=== PATIENT | female | born 1995 | race African-American/Black ===

== ENCOUNTER → 2016-04-05 | Outpatient (CLI) | payer OTHER ==
[2016-04-05 17:53] LABS: BASO % 0.4 % (0.0-1.0); EOS # 0.1 K/mm3 (0.0-0.50); EOS % 0.9 % (0.0-3.0); LARGE UNSTAINED CELL # 0.1 K/mm3 (0.0-0.4); LARGE UNSTAINED CELL % 1.9 % (0.0-4.0); LYMPH # 1.9 K/mm3 (1.5-6.5); LYMPH % 27.7 % (24.0-44.0); MEAN CORPUSCULAR HEMOGLOBIN 30.3 pg (27.0-33.0); MEAN CORPUSCULAR HGB CONC 33.5 g/dl (32.0-36.5); MEAN CORPUSCULAR VOLUME 90.5 fl (80.0-96.0); MONO # 0.3 K/mm3 (0.0-0.8); MONO % 4.9 % (0.0-5.0); NEUTROPHILS # 4.4 K/mm3 (1.8-7.7); NEUTROPHILS % 64.2 % (36.0-66.0); PLATELET COUNT, AUTOMATED 375 k/mm3 (150-450); RED CELL DISTRIBUTION WIDTH 11.3 % (11.5-14.5); WHITE BLOOD COUNT 6.9 K/mm3 (4.0-10.0)
[2016-04-08 11:13] LABS: HBsAg Prenatal NEGATIVE (NEGATIVE)
[2016-04-08 12:51] LABS: CONTROL LINE INT CTR LINE PRESENT; HIV SCRN NEGATIVE (NEGATIVE); HIV SCRN1 NEGATIVE (NEGATIVE)
== END ==
LOC: M LRY 11:59
PROVIDERS: ATTEND Obstetrics & Gynecology
DX: Z34.81 Encounter for supervision of other normal pregnancy, first trimester (principal)

== ENCOUNTER 2016-04-07 10:06 | Emergency (ER) | payer OTHER ==
--- NOTE | 2016-04-07 12:29 | EDDOCDS ---
Physician Documentation [facility] Name: Shelby Dodge Age: 20 yrs Sex: Female : 1995 Arrival Date: 04/07/2016 Time: 10:06 Bed I2 / M2 Private MD: Other - Complete Info On Cds Disposition: 04/07/16 12:21 Discharged to Home/Self Care. Impression: Nausea and vomiting, state - FIRST TRIMESTER, Other chest pain - likely due to acid reflux vs muscle strain, low risk for ACS/PE. - Condition is Stable. - Discharge Instructions: First Trimester of , Abdominal Pain During , Nonspecific Chest Pain. - Prescriptions for Diclegis 10- 10 mg Oral - take 2 tablets by ORAL route Every night As needed; 30 tablet. - Medication Reconciliation, Local Pharmacy Hours form. - Follow up: Shimon Stein; When: As previously arranged; Reason: Continuance of care, To establish care. Follow up: Emergency Department; When: As needed; Reason: Trouble breathing, Worsening of conditions, SEVERE PAIN, CHEST PAIN, VAGINAL BLEEDING, UNCONTROLLED VOMITING. - Problem is new. - Symptoms have improved. - Notes: may use over the counter TUMS for indigestion Historical: - Allergies: Morphinechest pain; Tylenol-Codeine #3vomiting; - Home Meds: 1. Vitamin Oral 1 tab once daily in theodora (Last dose: 04/06/2016) - PMHx: none; - PSHx: none; - Social history: Smoking status: Patient states was never smoker of tobacco. No barriers to communication noted, The patient speaks fluent Libyan, Speaks appropriately for age. - Family history: Not pertinent. - : The pt / caregiver states he / she is not on anticoagulants. Home medication list is obtained from the patient. - Exposure Risk Screening:: None identified. 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 1 in. (154.94 cm) (R); Pain 6/10; 12:24 BP 114 / 66; Pulse 66; Resp 18; Temp 98.4; Pulse Ox 98% ; Pain 0/10; dls 10:10 Body Mass Index 23.62 (56.70 kg, 154.94 cm) mt4 MDM: 10:25 ECG WITH READING ER PHYS+CARDIAG ordered. EDMS 10:49 Financial registration complete. mpb 10:52 [facility] Agreement was scanned into [employer] and attached to record. mpb 11:03 UCG by Nursing ordered. ar2 Point of Care Testing: Urine : 11:21 hCG Reading: Positive; jam1 Ranges: Signatures: Dispatcher [employer] EDMS Saumya Farr, RN RN dls Radha BowserRN RN jo3 Luigi Aguilar, PA-Samuel PA-Samuel ar2 Jose Cui, Jacobo Reg mpb The chart was reviewed and I authenticate all verbal orders and agree with the evaluation and treatment provided.Attachments: 10:52 [facility] mpb MTDD
--- NOTE | 2016-04-07 12:29 | EDDOCDS ---
Nurse's Notes [facility] Name: Shelby Dodge Age: 20 yrs Sex: Female : 1995 Arrival Date: 04/07/2016 Time: 10:06 Bed I2 / M2 Private MD: Other - Complete Info On Cds Diagnosis: Nausea and vomiting; state-FIRST TRIMESTER;Other chest pain-likely due to acid reflux vs muscle strain, low risk for ACS/PE Presentation: 04/07 10:16 Presenting complaint: Patient states: Upper abdominal pain bilaterally intermittently. jo3 Pains started . Also having intermittent left anterior chest pain when she has abdominal pain. Pt is approximately 7-8 weeks . Aspirin was not taken prior to arrival. Adult Sepsis Screening: The patient does not have new or worsening altered mentation. Patient's respiratory rate is less than 22. Systolic blood pressure is greater than 100. Patient has a qSOFA score of 0- Negative Sepsis Screen. Suicide/Homicide risk assessment- the patient denies having any suicidal and/or homicidal ideations and does not present with any other emotional, behavioral or mental health complaints. Status: The patient is a dependent. Transition of care: patient was not received from another setting of care. 10:16 Acuity: YASH Level 3 jo3 10:16 Method Of Arrival: Walkin/Carried/Asstd jo3 Triage Assessment: 10:19 General: Appears in no apparent distress, Behavior is appropriate for age, cooperative. jo3 Pain: Denies pain. HIV screening NA for this visit Offered previously. The patient is triaged at the bedside. See Assessment in Nurses Notes section of ED record. Neurological: Level of Consciousness is awake, alert, Oriented to person, place, time. Cardiovascular: Chest pain is denied. Respiratory: Airway is patent Respiratory effort is even, unlabored. Derm: Skin is pink, warm & dry. 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 Vitamin Oral 1 tab once daily in theodora (Last dose: 04/06/2016) - PMHx: none; - PSHx: none; - Social history: Smoking status: Patient states was never smoker of tobacco. No barriers to communication noted, The patient speaks fluent Slovenian, Speaks appropriately for age. - Family history: Not pertinent. - : The pt / caregiver states he / she is not on anticoagulants. Home medication list is obtained from the patient. - Exposure Risk Screening:: None identified. Screenin:44 Screening information is obtained from the patient. Primary language is Slovenian. Fall jam1 risk: No risks identified. Assistance ADL's: requires no assistance with activities of daily living. Abuse/DV Screen: The patient / caregiver reports he/she is: not in a situation that causes fear, pain or injury. Nutritional screening: No deficits noted. Exposure Risk Screening: None identified. Advance Directives: Currently, there is no health care proxy. There is no active DNR order. There is no living will. There is no Power of Assistant Front Office Manager. Advance directive information has not previously been placed in an [facility] medical record. Further advance directive information is declined. home support is adequate. Assessment: 10:37 Reassessment: patient brought to room and EKG done and reviewed. Patient was asked to kr3 go to lobby to wait for room placement and at this time patient is no longer in ED. 11:25 General: Appears in no apparent distress, comfortable, Behavior is cooperative. Pain: jf3 Location: right upper quadrant and left upper quadrant Pain currently is 0 out of 10 on a pain scale. At worst was 6 out of 10 on a pain scale. Quality of pain is described as sharp, stabbing. Neurological: Level of Consciousness is awake, alert, Oriented to person, place, time. Cardiovascular: Capillary refill < 3 seconds Chest pain is denied. Respiratory: Airway is patent Respiratory effort is even, unlabored, Respiratory pattern is regular, symmetrical, Breath sounds are clear bilaterally. Denies shortness of breath. GI: Abdomen is flat, non- distended Bowel sounds present X 4 quads. Abd is soft and non tender X 4 quads. Reports nausea, Denies diarrhea. Derm: Skin is normal. 12:27 Cardiovascular: Rhythm is sinus rhythm No ectopy. dls Vital Signs: 10:10 BP 112 / 67 LA Sitting (auto/reg); Pulse 72 LA; Resp 18 S; Temp 97.4(O); Pulse Ox 97% mt4 on R/A; Weight 56.7 kg (R); Height 5 ft. 1 in. (154.94 cm) (R); Pain 6/10; 12:24 BP 114 / 66; Pulse 66; Resp 18; Temp 98.4; Pulse Ox 98% ; Pain 0/10; dls 10:10 Body Mass Index 23.62 (56.70 kg, 154.94 cm) mt4 Vitals: 10:10 Log In Time: April 07, 2016 at 10:06. mt4 ED Course: 10:09 Patient visited by Yesenia Coombs. mt4 10:09 Patient moved to Waiting mt4 10:10 Other - Complete Info On Cds is Private Physician. mt4 10:11 Patient moved to Pre RCE mt4 10:18 Triage Initiated jo3 10:21 Patient visited by Radha Bowser RN. jo3 10:24 Patient moved to PR2 / 26 jo3 10:31 Luigi Aguilar PA-C is PHCP. ar2 10:31 Christian Duenas MD is Attending Physician. ar2 10:34 Patient visited by Luigi Aguilar PA-C. ar2 10:37 Patient moved to Pre RCE kr3 10:40 Patient moved to Triage 1 kr3 10:40 Patient moved to I2 / M2 kr3 10:44 Pt greeted and oriented to ED. Patient advised of names of staff involved in care, jam1 location of call robertson, wait times and NPO status. Patient has correct armband on for positive identification. Placed in gown. Bed in low position. Call light in reach. Side rails up X 1. Door closed. 10:52 [facility] Payment Agreement was scanned into [employer] and attached to record. mpb 11:25 The patient / caregiver is instructed regarding the plan of care and ED course. Cardiac jf3 monitoring not applicable on this patient. 11:35 Patient visited by Larry Maria,AGUILAR. jf3 12:19 Shimon Stein is Referral Physician. ar2 12:28 No IV's were initiated during this patient's visit. No procedures done that require dls assistance. Point of Care Testing: Urine : 11:21 hCG Reading: Positive; jam1 Ranges: Order Results: There are currently no results for this order. Outcome: 12:21 Discharge ordered by Provider. ar2 12:27 Discharge Assessment: Patient awake, alert and oriented x 3. No cognitive and/or dls functional deficits noted. Patient verbalized understanding of disposition instructions. patient administered narcotics - no. The following High Risk Discharge criteria are identified: None. Discharged to home ambulatory, with significant other. Condition: stable. Discharge instructions given to patient, Instructed on discharge instructions, follow up and referral plans. medication usage, Demonstrated understanding of instructions, medications, Pt was receptive of discharge instructions/ teaching. Prescriptions given X 1. Ultrasound Study completed. Property sent home with patient. 12:29 Patient left the ED. dls Signatures: Saumya Farr RN RN dls Molly Serna, COPING MACHINE ASSEMBLER COPING MACHINE ASSEMBLER jam1 Taylor Cox,RN RN kr3 Radha BowserRN RN jo3 Luigi Aguilar, PA-C PA-C ar2 Yesenia Coombs mt4 Larry MariaRN RN jf3 Jose Cui, Reg Reg mpb Corrections: (The following items were deleted from the chart) 10:21 10:16 Presenting complaint: Patient states: Upper abdominal pain bilaterally jo3 intermittently. Pains started . Also having intermittent left anterior chest pain when she has abdominal pain jo3 10:21 10:16 Aspirin was not taken prior to arrival. jo3 jo3 MTDD
--- NOTE | 2016-04-07 13:15 | ECGEPIP ---
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
--- NOTE | 2016-04-09 13:30 | EDDOCDS ---
Physician Documentation [facility] Name: Shelby Dodge Age: 20 yrs Sex: Female : 1995 Arrival Date: 04/07/2016 Time: 10:06 Bed I2 / M2 Private MD: Other - Complete Info On Cds Disposition: 04/07/16 12:21 Discharged to Home/Self Care. Impression: Nausea and vomiting, state - FIRST TRIMESTER, Other chest pain - likely due to acid reflux vs muscle strain, low risk for ACS/PE. - Condition is Stable. - Discharge Instructions: First Trimester of , Abdominal Pain During , Nonspecific Chest Pain. - Prescriptions for Diclegis 10- 10 mg Oral - take 2 tablets by ORAL route Every night As needed; 30 tablet. - Medication Reconciliation, Local Pharmacy Hours form. - Follow up: Shimon Stein; When: As previously arranged; Reason: Continuance of care, To establish care. Follow up: Emergency Department; When: As needed; Reason: Trouble breathing, Worsening of conditions, SEVERE PAIN, CHEST PAIN, VAGINAL BLEEDING, UNCONTROLLED VOMITING. - Problem is new. - Symptoms have improved. - Notes: may use over the counter TUMS for indigestion Historical: - Allergies: Morphinechest pain; Tylenol-Codeine #3vomiting; - Home Meds: 1. Vitamin Oral 1 tab once daily in theodora (Last dose: 04/06/2016) - PMHx: none; - PSHx: none; - Social history: Smoking status: Patient states was never smoker of tobacco. No barriers to communication noted, The patient speaks fluent [place]ry[place], Speaks appropriately for age. - Family history: Not pertinent. - : The pt / caregiver states he / she is not on anticoagulants. Home medication list is obtained from the patient. - Exposure Risk Screening:: None identified. 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 1 in. (154.94 cm) (R); Pain 6/10; 12:24 BP 114 / 66; Pulse 66; Resp 18; Temp 98.4; Pulse Ox 98% ; Pain 0/10; dls 10:10 Body Mass Index 23.62 (56.70 kg, 154.94 cm) mt4 MDM: 10:25 ECG WITH READING ER PHYS+CARDIAG ordered. EDMS 10:49 Financial registration complete. mpb 10:52 [facility] Payment Agreement was scanned into [employer] and attached to record. mpb 11:03 UCG by Nursing ordered. ar2 17:24 ECG/EKG was scanned into [employer] and attached to record. kf3 20:06 T-Sheet-- Draft Copy was scanned into [employer] and attached to record. klr Point of Care Testing: Urine : 11:21 hCG Reading: Positive; jam1 Ranges: Signatures: Dispatcher [employer] EDMS Saumya Farr RN RN dls Radha Bowser RN RN jo3 Telly Pinon, Reg Reg kf3 Luigi Aguilar, SHELLY PAKatharina ar2 Jose Cui, Reg Reg mpb Kallie Baires klr The chart was reviewed and I authenticate all verbal orders and agree with the evaluation and treatment provided.Attachments: 10:52 [facility] Payment Agreement mpb 17:24 ECG/EKG kf3 20:06 T-Sheet-- Draft Copy klr Chart Complete MTDD
--- NOTE | 2016-04-09 13:30 | EDDOCDS ---
Nurse's Notes [facility] Name: Monica Bolivar Age: 20 yrs Sex: Female : 1995 Arrival Date: 04/07/2016 Time: 10:06 Bed I2 / M2 Private MD: Other - Complete Info On Cds Diagnosis: Nausea and vomiting; state-FIRST TRIMESTER;Other chest pain-likely due to acid reflux vs muscle strain, low risk for ACS/PE Presentation: 04/07 10:16 Presenting complaint: Patient states: Upper abdominal pain bilaterally intermittently. jo3 Pains started . Also having intermittent left anterior chest pain when she has abdominal pain. Pt is approximately 7-8 weeks . Aspirin was not taken prior to arrival. Adult Sepsis Screening: The patient does not have new or worsening altered mentation. Patient's respiratory rate is less than 22. Systolic blood pressure is greater than 100. Patient has a qSOFA score of 0- Negative Sepsis Screen. Suicide/Homicide risk assessment- the patient denies having any suicidal and/or homicidal ideations and does not present with any other emotional, behavioral or mental health complaints. Status: The patient is a dependent. Transition of care: patient was not received from another setting of care. 10:16 Acuity: YASH Level 3 jo3 10:16 Method Of Arrival: Walkin/Carried/Asstd jo3 Triage Assessment: 10:19 General: Appears in no apparent distress, Behavior is appropriate for age, cooperative. jo3 Pain: Denies pain. HIV screening NA for this visit Offered previously. The patient is triaged at the bedside. See Assessment in Nurses Notes section of ED record. Neurological: Level of Consciousness is awake, alert, Oriented to person, place, time. Cardiovascular: Chest pain is denied. Respiratory: Airway is patent Respiratory effort is even, unlabored. Derm: Skin is pink, warm & dry. 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 Vitamin Oral 1 tab once daily in theodora (Last dose: 04/06/2016) - PMHx: none; - PSHx: none; - Social history: Smoking status: Patient states was never smoker of tobacco. No barriers to communication noted, The patient speaks fluent Arabic, Speaks appropriately for age. - Family history: Not pertinent. - : The pt / caregiver states he / she is not on anticoagulants. Home medication list is obtained from the patient. - Exposure Risk Screening:: None identified. Screenin:44 Screening information is obtained from the patient. Primary language is Arabic. Fall jam1 risk: No risks identified. Assistance ADL's: requires no assistance with activities of daily living. Abuse/DV Screen: The patient / caregiver reports he/she is: not in a situation that causes fear, pain or injury. Nutritional screening: No deficits noted. Exposure Risk Screening: None identified. Advance Directives: Currently, there is no health care proxy. There is no active DNR order. There is no living will. There is no Power of Planer Tailer. Advance directive information has not previously been placed in an [facility] medical record. Further advance directive information is declined. home support is adequate. Assessment: 10:37 Reassessment: patient brought to room and EKG done and reviewed. Patient was asked to kr3 go to lobby to wait for room placement and at this time patient is no longer in ED. 11:25 General: Appears in no apparent distress, comfortable, Behavior is cooperative. Pain: jf3 Location: right upper quadrant and left upper quadrant Pain currently is 0 out of 10 on a pain scale. At worst was 6 out of 10 on a pain scale. Quality of pain is described as sharp, stabbing. Neurological: Level of Consciousness is awake, alert, Oriented to person, place, time. Cardiovascular: Capillary refill < 3 seconds Chest pain is denied. Respiratory: Airway is patent Respiratory effort is even, unlabored, Respiratory pattern is regular, symmetrical, Breath sounds are clear bilaterally. Denies shortness of breath. GI: Abdomen is flat, non- distended Bowel sounds present X 4 quads. Abd is soft and non tender X 4 quads. Reports nausea, Denies diarrhea. Derm: Skin is normal. 12:27 Cardiovascular: Rhythm is sinus rhythm No ectopy. dls Vital Signs: 10:10 BP 112 / 67 LA Sitting (auto/reg); Pulse 72 LA; Resp 18 S; Temp 97.4(O); Pulse Ox 97% mt4 on R/A; Weight 56.7 kg (R); Height 5 ft. 1 in. (154.94 cm) (R); Pain 6/10; 12:24 BP 114 / 66; Pulse 66; Resp 18; Temp 98.4; Pulse Ox 98% ; Pain 0/10; dls 10:10 Body Mass Index 23.62 (56.70 kg, 154.94 cm) mt4 Vitals: 10:10 Log In Time: April 07, 2016 at 10:06. mt4 ED Course: 10:09 Patient visited by Yesenia Coombs. mt4 10:09 Patient moved to Waiting mt4 10:10 Other - Complete Info On Cds is Private Physician. mt4 10:11 Patient moved to Pre RCE mt4 10:18 Triage Initiated jo3 10:21 Patient visited by Radha Bowser RN. jo3 10:24 Patient moved to PR2 / 26 jo3 10:31 Luigi Aguilar PA-C is PHCP. ar2 10:31 Christian Duenas MD is Attending Physician. ar2 10:34 Patient visited by Luigi Aguilar PA-C. ar2 10:37 Patient moved to Pre RCE kr3 10:40 Patient moved to Triage 1 kr3 10:40 Patient moved to I2 / M2 kr3 10:44 Pt greeted and oriented to ED. Patient advised of names of staff involved in care, jam1 location of call robertson, wait times and NPO status. Patient has correct armband on for positive identification. Placed in gown. Bed in low position. Call light in reach. Side rails up X 1. Door closed. 10:52 [facility] Payment Agreement was scanned into [employer] and attached to record. mpb 11:25 The patient / caregiver is instructed regarding the plan of care and ED course. Cardiac jf3 monitoring not applicable on this patient. 11:35 Patient visited by Larry Maria,AGUILAR. jf3 12:19 Shimon Stein is Referral Physician. ar2 12:28 No IV's were initiated during this patient's visit. No procedures done that require dls assistance. 13:43 EKG-ADULT Returned. EDMS 17:24 ECG/EKG was scanned into [employer] and attached to record. kf3 20:06 T-Sheet-- Draft Copy was scanned into [employer] and attached to record. klr Point of Care Testing: Urine : 11:21 hCG Reading: Positive; jam1 Ranges: Order Results: Radiology Order: EKG-ADULT Test: EKG-ADULT REASON FOR EXAMINATION: Chest Pain; Stationary ECG Study; [facility] - ED; ; Test Date: 2016-04-07; Pat Name: MONICA BOLIVAR Department:; Room: -; Gender: F Database Operator: kami; : 1995 Requested By: Nuria Carl PA-C; Order Number: [id number] Reading MD: Hilary Perdue; Measurements; Intervals [place]; Rate: 69 P: 51; AL: 139 QRS: 13; QRSD: 87 T: -1; QT: 377; QTc: 406; Interpretive Statements; SINUS RHYTHM WITH SINUS ARRHYTHMIA; SEPTAL MYOCARDIAL INFARCTION, PROBABLY OLD; NSTTW ABNORMALITY; NO PRIRO FOR COMPARISON; Electronically Signed On 04-07-2016 13:15:18 EST by Hilary Perdue; Outcome: 12:21 Discharge ordered by Provider. ar2 12:27 Discharge Assessment: Patient awake, alert and oriented x 3. No cognitive and/or dls functional deficits noted. Patient verbalized understanding of disposition instructions. patient administered narcotics - no. The following High Risk Discharge criteria are identified: None. Discharged to home ambulatory, with significant other. Condition: stable. Discharge instructions given to patient, Instructed on discharge instructions, follow up and referral plans. medication usage, Demonstrated understanding of instructions, medications, Pt was receptive of discharge instructions/ teaching. Prescriptions given X 1. Ultrasound Study completed. Property sent home with patient. 12:29 Patient left the ED. dls Signatures: Dispatcher [employer] EDMS Saumya Farr RN RN dls Murphy, Jane, ELECTRICAL MAINTENANCE MAN ELECTRICAL MAINTENANCE MAN jam1 Taylor CoxRN RN kr3 Radha BowserRN RN jo3 Telly Pinon, Reg Reg kf3 Luigi Aguilar PA-C PA-C ar2 Yesenia Coombs mt4 Larry Maria,AGUILAR RN jf3 Jose Cui, Reg Reg mpb Kallie Baires Corrections: (The following items were deleted from the chart) 10:21 10:16 Presenting complaint: Patient states: Upper abdominal pain bilaterally jo3 intermittently. Pains started . Also having intermittent left anterior chest pain when she has abdominal pain jo3 10:21 10:16 Aspirin was not taken prior to arrival. jo3 jo3 Chart Complete MTDD
--- NOTE | 2016-04-09 13:30 | EDDOCDS ---
Physician Documentation [facility] Name: Shelby Dodge Age: 20 yrs Sex: Female : 1995 Arrival Date: 04/07/2016 Time: 10:06 Bed I2 / M2 Private MD: Other - Complete Info On Cds Disposition: 04/07/16 12:21 Discharged to Home/Self Care. Impression: Nausea and vomiting, state - FIRST TRIMESTER, Other chest pain - likely due to acid reflux vs muscle strain, low risk for ACS/PE. - Condition is Stable. - Discharge Instructions: First Trimester of , Abdominal Pain During , Nonspecific Chest Pain. - Prescriptions for Diclegis 10- 10 mg Oral - take 2 tablets by ORAL route Every night As needed; 30 tablet. - Medication Reconciliation, Local Pharmacy Hours form. - Follow up: Shimon Stein; When: As previously arranged; Reason: Continuance of care, To establish care. Follow up: Emergency Department; When: As needed; Reason: Trouble breathing, Worsening of conditions, SEVERE PAIN, CHEST PAIN, VAGINAL BLEEDING, UNCONTROLLED VOMITING. - Problem is new. - Symptoms have improved. - Notes: may use over the counter TUMS for indigestion Historical: - Allergies: Morphinechest pain; Tylenol-Codeine #3vomiting; - Home Meds: 1. Vitamin Oral 1 tab once daily in [place] (Last dose: 04/06/2016) - PMHx: none; - PSHx: none; - Social history: Smoking status: Patient states was never smoker of tobacco. No barriers to communication noted, The patient speaks fluent [place], Speaks appropriately for age. - Family history: Not pertinent. - : The pt / caregiver states he / she is not on anticoagulants. Home medication list is obtained from the patient. - Exposure Risk Screening:: None identified. 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 1 in. (154.94 cm) (R); Pain 6/10; 12:24 BP 114 / 66; Pulse 66; Resp 18; Temp 98.4; Pulse Ox 98% ; Pain 0/10; dls 10:10 Body Mass Index 23.62 (56.70 kg, 154.94 cm) mt4 MDM: 10:25 ECG WITH READING ER PHYS+CARDIAG ordered. EDMS 10:49 Financial registration complete. mpb 10:52 [facility] was scanned into [employer] and attached to record. mpb 11:03 UCG by Nursing ordered. ar2 17:24 ECG/EKG was scanned into [employer] and attached to record. kf3 20:06 T-Sheet-- Draft Copy was scanned into [employer] and attached to record. klr Point of Care Testing: Urine : 11:21 hCG Reading: Positive; jam1 Ranges: Signatures: Dispatcher [employer] EDMS Saumya Farr RN RN dls Radha Bowser RN RN jo3 Telly Pinon, Reg Reg kf3 Luigi Aguilar, SHELLY PAKatharina ar2 Jose Cui, Reg Reg mpb Kallie Baires klr The chart was reviewed and I authenticate all verbal orders and agree with the evaluation and treatment provided.Attachments: 10:52 [facility] [place] mpb 17:24 ECG/EKG kf3 20:06 T-Sheet-- Draft Copy klr Chart Complete MTDD
== END 2016-04-07 12:29 | disposition home or self-care (01) ==
LOC: M ED 10:06
DX: O26.891 Other specified pregnancy related conditions, first trimester (principal); R07.9 Chest pain, unspecified; O21.9 Vomiting of pregnancy, unspecified; Z88.5 Allergy status to narcotic agent; Z3A.00 Weeks of gestation of pregnancy not specified

== ENCOUNTER → 2016-06-19 | Outpatient (REF) | payer OTHER | LOC: M LAB REF 13:18 | PROVIDERS: ATTEND Obstetrics & Gynecology | DX: Z34.82 Encounter for supervision of other normal pregnancy, second trimester (principal) ==

== ENCOUNTER → 2016-06-20 | Outpatient (CLI) | payer OTHER ==
--- NOTE | 2016-06-20 15:03 | REP ---
OB ULTRASOUND: Real-time sonographic evaluation of the gravid uterus is performed. There is a single living intrauterine gestation. The estimated gestational age is 18 weeks 3 days, with EDC 11/18/2016. Today's measurements indicate appropriate growth. Biometry and Growth: BPD 44 mm = 19 weeks 2 days, 74th percentile HC 159 mm = 18 weeks 5 days, 61st percentile AC 137 mm = 19 weeks 1 day, 66th percentile FL 28 mm = 18 weeks 4 days, 54th percentile HC/AC ratio 1.16 within normal range. Estimated weight 262 grams 65th percentile. SEEN/GROSSLY UNREMARKABLE Lateral ventricles Yes Posterior fossa Yes Upper lip Yes Four-chamber heart Yes LVOT Yes RVOT Yes Stomach Yes Cord insertion Yes Three vessel cord Yes Kidneys Yes Bladder Yes Spine Yes Cervical length: Closed and measures 3.6 cm in length. heart rate: 153 beats per minute. position: Variable. Placenta: Posterior and grade 0 with no previa or abruption. Amniotic fluid: Within normal limits. Signed by Leonidas Thomas MD 06/20/2016 04:54 P
== END ==
LOC: M RAD 13:03
PROVIDERS: ATTEND Obstetrics & Gynecology
DX: Z36 Encounter for antenatal screening of mother (principal); Z3A.19 19 weeks gestation of pregnancy